=== PATIENT | female | born 1995 | race Caucasian/White ===

== ENCOUNTER 2018-07-27 17:19 | Emergency (ER) | payer OTHER, SELFPAY ==
[2018-07-27 17:46] VITALS: BP 144/87; PULSE 110; RESP 14; TEMP 39.2; O2SAT 99
--- NOTE | 2018-07-27 17:46 | ED.FEMALEGU ---
HPI - Female Genitourinary <Argentina Barclay PA-C - Last Filed: 07/27/18 21:37> General Chief complaint: Urogenital-Female Stated complaint: achy,pains,tired Time Seen by Provider: 07/27/18 17:44 Source: patient Mode of arrival: ambulatory Limitations: no limitations History of Present Illness HPI Narrative: This healthy 23-year-old female complains of 3 day history of right flank pain without any trauma. She states this was milder and intermittent at onset, she thought maybe a sore muscle. More pronounced later today (it was better earlier and she was going about her usual activities). She states last night she had onset of chills. This afternoon after eating sweets, she has had some nausea and started to have chills, feel warm, and achy as well as increased flank pain. She states she also has fatigue this afternoon and noticed a malodorous urine since last night. She denies any urgency, frequency, burning or hematuria. She denies any abdominal pain though states she feels a little bit bloated. She states that she has had some cough as well which is mild. She denies any sinus pain, earache, or sore throat. She denies any wheeze, dyspnea, or chest pain. She denies any STD concerns or new discharge. She denies any possibility of . Related Data Previous Rx's Medication Instructions Recorded levofloxacin [Levaquin] 750 mg PO DAILY 5 Days tab 07/27/18 Allergies Allergy/AdvReac Type Severity Reaction Status Date / Time No Known Drug Allergies Allergy Verified 07/27/18 18:18 Review of Systems <Agrentina Barclay PA-C - Last Filed: 07/27/18 21:37> Review of Systems All systems reviewed & are unremarkable except as noted in HPI and below Exam <Argentina Barclay PA-C - Last Filed: 07/27/18 21:37> Narrative Exam Narrative: GENERAL APPEARANCE: Patient sitting comfortably, in no distress. HEENT: PERRL, EOMI, no scleral icterus NECK: Supple LUNGS: Clear to auscultation bilaterally. HEART: Rate and rhythm regular, normal S1 and S2, no S3 or S4. ABDOMEN: Soft, nondistended, bowel sounds present x 4 quadrants, no masses palpable, no hepatosplenomegaly. Moderate right CVAT, no tenderness elsewhere EXTREMITIES: No edema, no cyanosis DERMATOLOGIC: No jaundice or exanthem NEUROLOGIC: Alert and oriented with normal speech and coordination Initial Vital Signs Initial Vital Signs: Vital Signs Temperature 102.6 F H 07/27/18 17:46 Pulse Rate 110 H 18 17:46 Respiratory Rate 14 07/27/18 17:46 Blood Pressure 144/87 H 07/27/18 17:46 Pulse Oximetry 99 07/27/18 17:46 <Jana Gallo DO - Last Filed: 07/28/18 00:18> Initial Vital Signs Initial Vital Signs: Vital Signs Temperature 102.6 F H 07/27/18 17:46 Pulse Rate 110 H 07/27/18 17:46 Respiratory Rate 14 07/27/18 17:46 Blood Pressure 144/87 H 07/27/18 17:46 Pulse Oximetry 99 07/27/18 17:46 Course <Argentina Barclay PA-C - Last Filed: 07/27/18 21:37> Additional Information: The patient reports feeling significantly improved prior to discharge. She has not had any vomiting. Fever is improved. Pain is much improved. She feels like she will be able to take medication at home without problem, declines prescription for antinausea medication. Reviewed findings and plan to treat presumptively for pyelonephritis while cultures are pending after review with Dr. Glalo. Patient is agreeable with this as well as plan to return if acutely worse again. Black box warning on Levaquin reviewed. Orders Ordered: ED Orders 07/27/18 17:25 Urine Culture Stat Urine Microscopic Stat 07/27/18 17:55 Complete Blood Count AUTO DIFF Stat Comprehensive Metabolic Panel Stat Lactate (Lactic Acid) Stat Lipase Stat Partial Thromboplastin Time Stat Prothrombin Time INR Stat 07/27/18 18:27 XR chest 2V Stat 07/27/18 18:30 Influenza A and B by PCR Rapid Stat Discontinued Medications Sodium Chloride (Normal Saline 0.9%) 1,000 mls @ 1,000 mls/hr IV BOLUS ONE Stop: 07/27/18 19:04 Last Infusion: 07/27/18 20:13 Dose: 0 mls/hr Admin: 07/27/18 18:07 Dose: 1,000 mls/hr Ketorolac Tromethamine (Toradol) 30 mg IV NOW ONE Stop: 07/27/18 17:58 Last Admin: 07/27/18 18:05 Dose: 30 mg Levofloxacin (Levaquin) 750 mg PO NOW ONE Stop: 07/27/18 19:25 Last Admin: 07/27/18 19:31 Dose: 750 mg Ondansetron HCl (Zofran) 4 mg IV NOW ONE Stop: 07/27/18 17:58 Last Admin: 07/27/18 18:05 Dose: 4 mg Vital Signs - 8 hr 07/27/18 17:46 07/27/18 18:35 07/27/18 18:59 Temperature 102.6 F H 99.9 F H Pulse Rate 110 H 75 Respiratory Rate 14 15 Blood Pressure 144/87 H Blood Pressure [Left Arm] 120/65 Pulse Oximetry 99 98 07/27/18 20:13 07/27/18 20:14 Temperature 99.6 F Pulse Rate 75 Respiratory Rate 14 Blood Pressure 118/54 L Blood Pressure [Left Arm] Pulse Oximetry 99 <Jana Gallo, - Last Filed: 07/28/18 00:18> Orders Ordered: ED Orders 07/27/18 17:25 Urine Culture Stat Urine Microscopic Stat 07/27/18 17:55 Complete Blood Count AUTO DIFF Stat Comprehensive Metabolic Panel Stat Lactate (Lactic Acid) Stat Lipase Stat Partial Thromboplastin Time Stat Prothrombin Time INR Stat 07/27/18 18:27 XR chest 2V Stat 07/27/18 18:30 Influenza A and B by PCR Rapid Stat Discontinued Medications Sodium Chloride (Normal Saline 0.9%) 1,000 mls @ 1,000 mls/hr IV BOLUS ONE Stop: 07/27/18 19:04 Last Infusion: 07/27/18 20:13 Dose: 0 mls/hr Admin: 07/27/18 18:07 Dose: 1,000 mls/hr Ketorolac Tromethamine (Toradol) 30 mg IV NOW ONE Stop: 07/27/18 17:58 Last Admin: 07/27/18 18:05 Dose: 30 mg Levofloxacin (Levaquin) 750 mg PO NOW ONE Stop: 07/27/18 19:25 Last Admin: 07/27/18 19:31 Dose: 750 mg Ondansetron HCl (Zofran) 4 mg IV NOW ONE Stop: 11/17/18 17:58 Last Admin: 07/27/18 18:05 Dose: 4 mg Vital Signs - 8 hr 07/27/18 17:46 07/27/18 18:35 07/27/18 18:59 Temperature 102.6 F H 99.9 F H Pulse Rate 110 H 75 Respiratory Rate 14 15 Blood Pressure 144/87 H Blood Pressure [Left Arm] 120/65 Pulse Oximetry 99 98 07/27/18 20:13 07/27/18 20:14 Temperature 99.6 F Pulse Rate 75 Respiratory Rate 14 Blood Pressure 118/54 L Blood Pressure [Left Arm] Pulse Oximetry 99 MDM - Female Genitourinary <Argentina Barclay PA-C - Last Filed: 07/27/18 21:37> Lab Data Attestation: I reviewed the patient's lab results. Result diagrams: 07/27/18 17:55 07/27/18 17:55 Lab Results 07/27/18 07/27/18 07/27/18 Range/Units 17:25 17:55 17:55 WBC 10.4 (4.5-11.0) X10^3/uL RBC 3.99 L (4.0-5.2) X10^6/uL Hgb 11.8 L (12.0-16.0) g/dL Hct 34.3 L (36-46) % MCV 86.1 (80-100) fL MCH 29.5 (26-34) PG MCHC 34.3 (30-36) % RDW 13.3 (11.6-14.8) % Plt Count 212 (150-400) X10^3/uL Neut % (Auto) 93.5 H (50-75) % Lymph % (Auto) 2.2 L (25-40) % Rowan % (Auto) 3.7 (3-14) % Eos % (Auto) 0.2 L (2-4) % Baso % (Auto) 0.4 (0-2) % Neut # (Auto) 9700 H (3721-3495) /uL PT 13.5 H (10.1-12.7) SECONDS INR 1.2 (0.9-1.3) APTT 24 L (26.4-36.2) SECONDS Sodium (137-145) mmol/L Potassium (3.4-5.1) mmol/L Chloride (98-107) mmol/L Carbon Dioxide (22-32) mmol/L BUN (7-17) mg/dL Creatinine (0.52-1.04) mg/dL Estimated GFR (>60) mL/min BUN/Creatinine Ratio (6-22) Glucose (70-100) mg/dL Lactate (0.7-2.1) mmol/L Calcium (8.4-10.2) mg/dL Total Bilirubin (0.2-1.3) mg/dL AST (14-36) IU/L ALT (9-52) IU/L Alkaline Phosphatase (38-126) U/L Total Protein (6.3-8.2) g/dL Albumin (3.5-5.0) g/dL Globulin (1.7-4.1) g/dL Albumin/Globulin Ratio (1.0-2.8) Lipase (23-300) U/L Urine RBC 1-5/hpf (0-5/HPF) Urine WBC 5-10/hpf H (0-5/HPF) Ur Squamous Epith Cells 5-10 /hpf H Urine Bacteria None seen (None) Ur Culture Indicated? Cult not indicated Micro UA Comment Not Reportable Influenza A & B (PCR) (Negative) 07/27/18 07/27/18 07/27/18 Range/Units 17:55 17:55 18:30 WBC (4.5-11.0) X10^3/uL RBC (4.0-5.2) X10^6/uL Hgb (12.0-16.0) g/dL Hct (36-46) % MCV (80-100) fL MCH (26-34) PG MCHC (30-36) % RDW (11.6-14.8) % Plt Count (150-400) X10^3/uL Neut % (Auto) (50-75) % Lymph % (Auto) (25-40) % Rowan % (Auto) (3-14) % Eos % (Auto) (2-4) % Baso % (Auto) (0-2) % Neut # (Auto) (4816-7620) /uL PT (10.1-12.7) SECONDS INR (0.9-1.3) APTT (26.4-36.2) SECONDS Sodium 137 (137-145) mmol/L Potassium 3.5 (3.4-5.1) mmol/L Chloride 101 (98-107) mmol/L Carbon Dioxide 24 (22-32) mmol/L BUN 9 (7-17) mg/dL Creatinine 0.60 (0.52-1.04) mg/dL Estimated GFR > 60.0 (>60) mL/min BUN/Creatinine Ratio 15.0 (6-22) Glucose 104 H (70-100) mg/dL Lactate 0.7 (0.7-2.1) mmol/L Calcium 8.8 (8.4-10.2) mg/dL Total Bilirubin 0.6 (0.2-1.3) mg/dL AST 22 (14-36) IU/L ALT 23 (9-52) IU/L Alkaline Phosphatase 50 (38-126) U/L Total Protein 7.3 (6.3-8.2) g/dL Albumin 4.4 (3.5-5.0) g/dL Globulin 2.9 (1.7-4.1) g/dL Albumin/Globulin Ratio 1.5 (1.0-2.8) Lipase 50 (23-300) U/L Urine RBC (0-5/HPF) Urine WBC (0-5/HPF) Ur Squamous Epith Cells Urine Bacteria (None) Ur Culture Indicated? Micro UA Comment Influenza A & B (PCR) Negative (Negative) Point of Care Testing Test Results Negative Urine Dip Bedside Urine Glucose Negative Bedside Urine Bilirubin - Negative Bedside Urine Ketone - Negative Urine Specific [place] 1.015 Bedside Urine Occult Blood + Bedside Urine pH 7.5 Bedside Urine Protein - Negative Bedside Urine Urobilinogen - Negative Bedside Urine Nitrite - Negative Bedside Urine Leukocytes +/- 15 Esterase Imaging Data Chest x-ray: Radiologist's impression: [address] [address] XRay Report Signed Patient: Brittney Doe GMR#: [id number] : 1995Acct:[id number] Age/Sex: 23 / FDate of Service: 07/27/18 Loc: ED Accession Number: [id number] Procedure: XR chest 2V Ordering Provider: Argentina Barclay P.A-C PROCEDURE: XR CHEST 2V INDICATIONS: cough, fever, r. flank pain TECHNIQUE: 2 views of the chest were acquired. COMPARISON: None. FINDINGS: Surgical changes and devices: None. Lungs and pleura: No pleural effusions or pneumothorax. Lungs are clear. Mediastinum: Mediastinal contours are normal. Heart size is normal. Bones and chest wall: No suspicious bony abnormalities. Soft tissues appear unremarkable. IMPRESSION: No acute cardiopulmonary disease. Dictated by: Katalina Vargas M.D. on 07/27/2018 at 18:59 Approved by: Katalina Vargas M.D. on 07/27/2018 at 19:00 <Jana Gallo, - Last Filed: 07/28/18 00:18> Lab Data Lab Results 07/27/18 07/27/18 07/27/18 Range/Units 17:25 17:55 17:55 WBC 10.4 (4.5-11.0) X10^3/uL RBC 3.99 L (4.0-5.2) X10^6/uL Hgb 11.8 L (12.0-16.0) g/dL Hct 34.3 L (36-46) % MCV 86.1 (80-100) fL MCH 29.5 (26-34) PG MCHC 34.3 (30-36) % RDW 13.3 (11.6-14.8) % Plt Count 212 (150-400) X10^3/uL Neut % (Auto) 93.5 H (50-75) % Lymph % (Auto) 2.2 L (25-40) % Rowan % (Auto) 3.7 (3-14) % Eos % (Auto) 0.2 L (2-4) % Baso % (Auto) 0.4 (0-2) % Neut # (Auto) 9700 H (3856-3901) /uL PT 13.5 H (10.1-12.7) SECONDS INR 1.2 (0.9-1.3) APTT 24 L (26.4-36.2) SECONDS Sodium (137-145) mmol/L Potassium (3.4-5.1) mmol/L Chloride (98-107) mmol/L Carbon Dioxide (22-32) mmol/L BUN (7-17) mg/dL Creatinine (0.52-1.04) mg/dL Estimated GFR (>60) mL/min BUN/Creatinine Ratio (6-22) Glucose (70-100) mg/dL Lactate (0.7-2.1) mmol/L Calcium (8.4-10.2) mg/dL Total Bilirubin (0.2-1.3) mg/dL AST (14-36) IU/L ALT (9-52) IU/L Alkaline Phosphatase (38-126) U/L Total Protein (6.3-8.2) g/dL Albumin (3.5-5.0) g/dL Globulin (1.7-4.1) g/dL Albumin/Globulin Ratio (1.0-2.8) Lipase (23-300) U/L Urine RBC 1-5/hpf (0-5/HPF) Urine WBC 5-10/hpf H (0-5/HPF) Ur Squamous Epith Cells 5-10 /hpf H Urine Bacteria None seen (None) Ur Culture Indicated? Cult not indicated Micro UA Comment Not Reportable Influenza A & B (PCR) (Negative) 07/27/18 07/27/18 07/27/18 Range/Units 17:55 17:55 18:30 WBC (4.5-11.0) X10^3/uL RBC (4.0-5.2) X10^6/uL Hgb (12.0-16.0) g/dL Hct (36-46) % MCV (80-100) fL MCH (26-34) PG MCHC (30-36) % RDW (11.6-14.8) % Plt Count (150-400) X10^3/uL Neut % (Auto) (50-75) % Lymph % (Auto) (25-40) % Rowan % (Auto) (3-14) % Eos % (Auto) (2-4) % Baso % (Auto) (0-2) % Neut # (Auto) (8457-1312) /uL PT (10.1-12.7) SECONDS INR (0.9-1.3) APTT (26.4-36.2) SECONDS Sodium 137 (137-145) mmol/L Potassium 3.5 (3.4-5.1) mmol/L Chloride 101 (98-107) mmol/L Carbon Dioxide 24 (22-32) mmol/L BUN 9 (7-17) mg/dL Creatinine 0.60 (0.52-1.04) mg/dL Estimated GFR > 60.0 (>60) mL/min BUN/Creatinine Ratio 15.0 (6-22) Glucose 104 H (70-100) mg/dL Lactate 0.7 (0.7-2.1) mmol/L Calcium 8.8 (8.4-10.2) mg/dL Total Bilirubin 0.6 (0.2-1.3) mg/dL AST 22 (14-36) IU/L ALT 23 (9-52) IU/L Alkaline Phosphatase 50 (38-126) U/L Total Protein 7.3 (6.3-8.2) g/dL Albumin 4.4 (3.5-5.0) g/dL Globulin 2.9 (1.7-4.1) g/dL Albumin/Globulin Ratio 1.5 (1.0-2.8) Lipase 50 (23-300) U/L Urine RBC (0-5/HPF) Urine WBC (0-5/HPF) Ur Squamous Epith Cells Urine Bacteria (None) Ur Culture Indicated? Micro UA Comment Influenza A & B (PCR) Negative (Negative) Point of Care Testing Test Results Negative Urine Dip Bedside Urine Glucose Negative Bedside Urine Bilirubin - Negative Bedside Urine Ketone - Negative Urine Specific [place] 1.015 Bedside Urine Occult Blood + Bedside Urine pH 7.5 Bedside Urine Protein - Negative Bedside Urine Urobilinogen - Negative Bedside Urine Nitrite - Negative Bedside Urine Leukocytes +/- 15 Esterase Discharge Plan Departure Patient Disposition: Home Clinical Impression: Pyelonephritis Discharge Date/Time: 07/27/18 20:19 Interventions: ED Discharge Assessment Last Done: 07/27/18 20:14 Instructions: DI for Kidney Infection Activity Restrictions/Additional Instructions: You should return to the closest ED as we talked about if you have any acutely worsening symptoms such as high fever, severe pain, or vomiting/unable to take her medicines. Otherwise, please leaf size picker your 2nd dose of medication tomorrow at the pharmacy and take the next dose tomorrow evening. Rest this weekend, drink clear fluids and bland foods since sweet foods seem to cause nausea today. Please call your PCP 1st thing on Sunday and arrange for follow-up on Sunday or Sunday for recheck. Your urine cultures should be back by then (as we talked about, we are treating for this based on your symptoms and exam today as your tests all look basically normal). Prescriptions: New levofloxacin [Levaquin] 750 mg tablet 750 mg PO DAILY 5 Days RF: 0 Referrals: [facility] [Provider Group] <Jana Gallo DO - Last Filed: 07/28/18 00:18> Cosign ED Attending Cosignature Attestation: I was immediately available in the department for consultation. This documentation has been reviewed and I agree with assessment and plan. Supervised by Jana Gallo DO
[2018-07-27 17:51] LABS: Bacteria Urine None Seen
[2018-07-27 18:05] LABS: Add Manual Diff / Slide Review NO; Basophils Percent Auto 0.4 % (0-2); Eosinophils Percent Auto 0.2 % (2-4); Hematocrit 34.3 % (36-46); Hemoglobin 11.8 g/dL (12.0-16.0); Lymphocytes Percent Auto 2.2 % (25-40); Mean Corpuscular HGB Conc 34.3 % (30-36); Mean Corpuscular Hemoglobin 29.5 PG (26-34); Mean Corpuscular Volume 86.1 fL (80-100); Monocytes Percent Auto 3.7 % (3-14); Neutrophils Absolute Auto 9700 /uL (3000-5900); Neutrophils Percent Auto 93.5 % (50-75); Platelet Count 212 X10^3/uL (150-400); Red Blood Cell Count 3.99 X10^6/uL (4.0-5.2); Red Cell Distribution Width 13.3 % (11.6-14.8); White Blood Cell Count 10.4 X10^3/uL (4.5-11.0)
[2018-07-27] MEDS: ONDANSETRON 4 MG/2 ML INJ IV (18:05)
[2018-07-27] MEDS: KETOROLAC 60 MG/2 ML VIAL 30 MG IV (18:05)
[2018-07-27] MEDS: SODIUM CHLORIDE 0.9% 1,000 ML 1000 ML IV (18:07)
[2018-07-27 18:12] LABS: INR 1.2 (0.9-1.3); Prothrombin Time 13.5 SECONDS (10.1-12.7)
[2018-07-27 18:13] LABS: Culture Indicated Urine Cult Not Indicated; RBC Urine 1-5/HPF (0-5/HPF); Squamous Epithelial Cell Urine 5-10 /HPF; WBC Urine 5-10/HPF (0-5/HPF)
[2018-07-27 18:15] LABS: Lactate (Lactic Acid) 0.7 mmol/L (0.7-2.1); PTT Partial Thromboplastin Tim 24 SECONDS (26.4-36.2)
[2018-07-27 18:17] LABS: Alanine Aminotransferase 23 IU/L (9-52); Albumin 4.4 g/dL (3.5-5.0); Albumin Globulin Ratio 1.5 (1.0-2.8); Alkaline Phosphatase 50 U/L (38-126); Aspartate Aminotransferase 22 IU/L (14-36); Bilirubin Total 0.6 mg/dL (0.2-1.3); Blood Urea Nitrogen 9 mg/dL (7-17); Calcium 8.8 mg/dL (8.4-10.2); Carbon Dioxide 24 mmol/L (22-32); Chloride 101 mmol/L (98-107); Estimated Glomerular Filt Rate > 60.0 mL/min (>60); Globulin 2.9 g/dL (1.7-4.1); Glucose 104 mg/dL (70-100); HEMOLYSIS < 15 (0-50); Lipase 50 U/L (23-300); Potassium 3.5 mmol/L (3.4-5.1); Sodium 137 mmol/L (137-145); Total Protein 7.3 g/dL (6.3-8.2)
--- NOTE | 2018-07-27 18:27 | DI.RAD.S_ITS ---
PROCEDURE: XR CHEST 2V INDICATIONS: cough, fever, r. flank pain TECHNIQUE: 2 views of the chest were acquired. COMPARISON: None. FINDINGS: Surgical changes and devices: None. Lungs and pleura: No pleural effusions or pneumothorax. Lungs are clear. Mediastinum: Mediastinal contours are normal. Heart size is normal. Bones and chest wall: No suspicious bony abnormalities. Soft tissues appear unremarkable. IMPRESSION: No acute cardiopulmonary disease. Dictated by: Katalina Vargas M.D. on 07/27/2018 at 18:59 Approved by: Katalina Vargas M.D. on 07/27/2018 at 19:00
--- NOTE | 2018-07-27 18:34 | PC.NURSE ---
flu swab sent to lab
[2018-07-27 18:35] VITALS: TEMP 37.7
[2018-07-27 18:58] LABS: Influenza A and B by PCR Rapid Negative (Negative)
[2018-07-27 18:59] VITALS: BP 120/65; PULSE 75; RESP 15; O2SAT 98
[2018-07-27] MEDS: levoFLOXacin 250 MG TABLET 750 MG PO (19:31)
[2018-07-27 20:13] VITALS: TEMP 37.6
[2018-07-27 20:14] VITALS: BP 118/54; PULSE 75; RESP 14; O2SAT 99
== END 2018-07-27 20:19 | disposition home or self-care (01) ==
PROVIDERS: Emergency Medicine; Emergency Provider Internal Medicine
DX: N12 Tubulo-interstitial nephritis, not specified as acute or chronic (principal)
CPT/HCPCS: 36591; 71046; 80053; 81003; 81015; 81025; 83605; 83690; 85025; 85610; 85730; 87077; 87086; 87186; 87400; 96361; 96374; 96375; 99283; 99284; J1885; J2405